=== PATIENT | male | born 1990 | race Two or more races ===

== ENCOUNTER 2018-11-11 14:34 | Emergency (ER) | payer SELFPAY ==
[2018-11-11] MEDS ORDERED: ALBUTEROL SO4 2.5/IPRATROPIUM 0.5 INH SOL 3 ML VIAL.NEB. NEB ONE ×4 (14:55→16:19)
[2018-11-11 14:58] VITALS: BP 98/51; PULSE 64; TEMP 98.5; BMI 24.7
--- NOTE | 2018-11-11 14:58 | PDOC ---
Rapid Medical Evaluation Chief Complaint: Asthma Time Seen by Provider: 11/11/18 14:52 Medical Evaluation: Allergies Allergy/AdvReac Type Severity Reaction Status Date / Time No Known Allergies Allergy Verified 11/10/11 22:21 11/11/18 14:53 27 year old c/o wheezing x 2 days. chest tightness. patient reports that he used his sisters inhaler prior to this evaluation. now feels slightly better. + smoker PE: patient alert ox3 breath sounds clear PMHX: asthma P: chest xray duoneb x 1 patient to the ER for further management of care. 11/11/18 14:58 Discharge Disposition - Diagnosis Asthma Qualifiers: Asthma severity: mild Asthma persistence: intermittent Asthma complication type : unspecified Qualified Code(s): J45.20 - Mild intermittent asthma, uncomplicated - Referrals - Patient Instructions - Post Discharge Activity
[2018-11-11] MEDS ORDERED: DEXAMETHASONE LIQUID 0.5 MG/5 ML PO ONE (15:42)
[2018-11-11] MEDS ORDERED: DEXAMETHASONE SOD PHOSPHATE 10 MG/1 ML VIAL ONE (15:43)
--- NOTE | 2018-11-11 15:47 | PDOC ---
History of Present Illness - General Chief Complaint: Asthma Stated Complaint: ASTHMA Time Seen by Provider: 11/11/18 14:52 History Source: Patient Exam Limitations: No Limitations Past History - Travel Traveled outside of the country in the last 30 days: No Close contact w/someone who was outside of country & ill: No - Past Medical History Allergies/Adverse Reactions: Allergies Allergy/AdvReac Type Severity Reaction Status Date / Time No Known Allergies Allergy Verified 11/11/18 14:55 Home Medications: Ambulatory Orders No Home Medications 0 dose .ROUTE UTDICT 11/10/11 Albuterol Sulfate Inhaler - [Ventolin HFA Inhaler -] 1 - 2 inh PO Q4H #1 inhaler 11/11/18 Asthma: Yes CVA: No COPD: No - Immunization History Immunization Up to Date: Yes - Suicide/Smoking/Psychosocial Hx Smoking Status: Yes Smoking History: Never smoked Number of Cigarettes Smoked Daily: 0 Information on smoking cessation initiated: No Hx Alcohol Use: No Drug/Substance Use Hx: Yes (marijuana) Review of Systems - Review of Systems Able to Perform ROS?: Yes Comments:: 11/11/18 15:47 CONSTITUTIONAL: Absent: fever, chills, diaphoresis, generalized weakness, malaise, loss of appetite HEENT: Absent: rhinorrhea, nasal congestion, throat pain, throat swelling, difficulty swallowing, mouth swelling, ear pain, eye pain, visual Changes CARDIOVASCULAR: Absent: chest pain, loss of consciousness, palpitations, irregular heart rate, peripheral edema RESPIRATORY: Present: cough, chest tightness. Absent: dyspnea with exertion, orthopnea, wheezing, stridor, hemoptysis MUSCULOSKELETAL: Absent: myalgia, arthralgia, joint swelling SKIN: Absent: rash, itching, pallor NEUROLOGIC: Absent: headache, focal weakness or paresthesias, dizziness, unsteady gait, seizure, mental status changes, bladder or bowel incontinence PSYCHIATRIC: Absent: anxiety, depression, suicidal or homicidal ideation, hallucinations. Is the patient limited Burkinan proficient: No *Physical Exam - Vital Signs Last Vital Signs Temp Pulse Resp BP Pulse Ox 98.5 F 64 17 98/51 L 100 11/11/18 14:55 11/11/18 14:55 11/11/18 14:55 11/11/18 14:55 11/11/18 14:55 - Physical Exam Comments: 11/11/18 19:32 GENERAL: Well developed, well nourished. Awake and alert. No acute distress. HEENT: Normocephalic, atraumatic. PERRLA, EOMI. No conjunctival pallor. Sclera are non- icteric. Moist mucous membranes. Oropharynx is clear. NECK: Supple. Full ROM. No JVD. Carotid pulses 2+ and symmetric, without bruits. No thyromegaly. No lymphadenopathy. CARDIOVASCULAR: Regular rate and rhythm. No murmurs, rubs, or gallops. Distal pulses are 2+ and symmetric. PULMONARY: No evidence of respiratory distress. Lungs clear to auscultation bilaterally. No wheezing, rales or rhonchi. ABDOMINAL: Soft. Non-tender. Non-distended. No rebound or guarding. No organomegaly. Normoactive bowel sounds. MUSCULOSKELETAL Normal range of motion at all joints. No bony deformities or tenderness. No CVA tenderness. EXTREMITIES: No cyanosis. No clubbing. No edema. No calf tenderness. SKIN: Warm and dry. Normal capillary refill. No rashes. No jaundice. NEUROLOGICAL: Alert, awake, appropriate. Cranial nerves 2-12 intact. No deficits to light touch and temperature in face, upper extremities and lower extremities. No motor deficits in the in face, upper extremities and lower extremities. Normoreflexic in the upper and lower extremities. Normal speech. Toes are down- going bilaterally. Gait is normal without ataxia. PSYCHIATRIC: Cooperative. Good eye contact. Appropriate mood and affect. ED Treatment Course - Medications Given in the ED: ED Medications Discontinued Medications Generic Name Dose Route Start Last Admin Trade Name Freq PRN Reason Stop Dose Admin Albuterol/Ipratropium 1 amp 11/11/18 14:55 11/11/18 15:13 Duoneb - NEB 11/11/18 14:56 1 amp ONCE ONE Administration Medical Decision Making - Medical Decision Making 11/11/18 19:32 patient is a 27-year-old male with past medical history of asthma as a child, who presents to the ER today for chest tightness and cough for 2 days. He states that he used his sister's inhaler which helped his symptoms. He states he grew out of his asthma in high school. He was never hospitalized or intubated for his asthma in the past. Denies shortness of breath, chest pain, nausea, vomiting and diarrhea. A/P: Asthma exacerbation Exam lung sounds are clear however little tight at the bases. No wheezes rales or rhonchi. Chest x-ray ordered from [facility] is negative for pneumonia. For DuoNeb's and Decadron given with relief of symptoms. Repeat lung sounds are now clear with good aeration to the bases. Discharge home with a rescue inhaler Patient to follow-up with his primary care doctor. I discussed the physical exam findings, ancillary test results and final diagnoses with the patient. I answered all of the patient's questions. The patient was satisfied with the care received and felt comfortable with the discharge plan and treatment plan. The Patient agrees to follow up with the primary care physician/specialist within 24-72 hours. Return precautions were given. *DC/Admit/Observation/Transfer Diagnosis at time of Disposition: Asthma Qualifiers: Asthma severity: mild Asthma persistence: intermittent Asthma complication type : unspecified Qualified Code(s): J45.20 - Mild intermittent asthma, uncomplicated - Discharge Dispostion Disposition: HOME Condition at time of disposition: Stable Decision to Admit order: No - Prescriptions Prescriptions: Albuterol Sulfate Inhaler - [Ventolin HFA Inhaler -] 1 - 2 inh PO Q4H #1 inhaler - Referrals Referrals: Francisco Razo MD [Staff Physician] - - Patient Instructions Printed Discharge Instructions: Asthma -- Adult Additional Instructions: You have an asthma exacerbation Please use the inhaler every 4 hours for the next week to help with your cough. You were given a long acting steroid in the emergency department. Please follow up with your primary care doctor in 1 week if your symptoms are not improving. Return to the emergency department if you have fevers, chills, worsening cough, chest pain, worsening shortness of breath or if you have any changes in your symptoms. - Post Discharge Activity Forms/Work/School Notes: Back to Work
[2018-11-11] MEDS: ALBUTEROL SO4 2.5/IPRATROPIUM 0.5 INH SOL 3 ML VIAL.NEB. NEB SCH ×4 (15:49→16:41)
== END 2018-11-11 17:15 | disposition home or self-care (01) ==
LOC: JERFT 14:34
PROC: 3E0F7GC Introduction of Other Therapeutic Substance into Respiratory Tract, Via Natural or Artificial Opening (ICD-10-PCS; principal; 2018-11-11)
PROC: 3E0F7GC Introduction of Other Therapeutic Substance into Respiratory Tract, Via Natural or Artificial Opening (ICD-10-PCS; 2018-11-11)
DX: J45.21 Mild intermittent asthma with (acute) exacerbation (principal); F17.210 Nicotine dependence, cigarettes, uncomplicated
CPT/HCPCS: 71046-TC-FY; 99281-25

== ENCOUNTER 2018-11-13 12:41 | Emergency (ER) | payer SELFPAY ==
[2018-11-13 12:51] VITALS: BMI 24.3
[2018-11-13] MEDS ORDERED: DEXAMETHASONE LIQUID 0.5 MG/5 ML PO ONE (13:55)
[2018-11-13] MEDS ORDERED: ALBUTEROL SO4 2.5/IPRATROPIUM 0.5 INH SOL 3 ML VIAL.NEB. NEB ONE ×2 (13:55→13:59)
--- NOTE | 2018-11-13 13:57 | PDOC ---
History of Present Illness - General Chief Complaint: Chest Pain Stated Complaint: CHEST PAIN Time Seen by Provider: 11/13/18 12:58 History Source: Patient Exam Limitations: No Limitations Past History - Travel Traveled outside of the country in the last 30 days: No Close contact w/someone who was outside of country & ill: No - Past Medical History Allergies/Adverse Reactions: Allergies Allergy/AdvReac Type Severity Reaction Status Date / Time cat dander Allergy Verified 11/13/18 12:48 Home Medications: Ambulatory Orders No Home Medications 0 dose .ROUTE UTDICT 11/10/11 Prednisone [Deltasone] 40 mg PO DAILY #8 tablet 11/13/18 Asthma: Yes CVA: No COPD: No - Immunization History Immunization Up to Date: Yes - Suicide/Smoking/Psychosocial Hx Smoking Status: Yes Smoking History: Never smoked Number of Cigarettes Smoked Daily: 0 Hx Alcohol Use: No Drug/Substance Use Hx: Yes (marijuana) Review of Systems - Review of Systems Able to Perform ROS?: Yes Comments:: 11/13/18 15:31 CONSTITUTIONAL: Absent: fever, chills, diaphoresis, generalized weakness, malaise, loss of appetite HEENT: Absent: rhinorrhea, nasal congestion, throat pain, throat swelling, difficulty swallowing, mouth swelling, ear pain, eye pain, visual Changes CARDIOVASCULAR: Present: chest pain Absent: loss of consciousness, palpitations, irregular heart rate, peripheral edema RESPIRATORY: Present: chest tightness Absent: cough, shortness of breath, dyspnea with exertion, orthopnea, wheezing, stridor, hemoptysis GASTROINTESTINAL: Absent: abdominal pain, abdominal distension, nausea, vomiting, diarrhea, constipation, melena, hematochezia GENITOURINARY: Absent: dysuria, frequency, urgency, hesitancy, hematuria, flank pain, genital pain MUSCULOSKELETAL: Absent: myalgia, arthralgia, joint swelling SKIN: Absent: rash, itching, pallor HEMATOLOGIC/IMMUNOLOGIC: Absent: easy bleeding, easy bruising, lymphadenopathy, frequent infections ENDOCRINE: Absent: unexplained weight gain, unexplained weight loss, heat intolerance, cold intolerance NEUROLOGIC: Absent: headache, focal weakness or paresthesias, dizziness, unsteady gait, seizure, mental status changes, bladder or bowel incontinence PSYCHIATRIC: Absent: anxiety, depression, suicidal or homicidal ideation, hallucinations. Is the patient limited Malawian proficient: No *Physical Exam - Vital Signs Last Vital Signs Temp Pulse Resp BP Pulse Ox 98 F 58 L 20 92/52 L 99 11/13/18 12:48 11/13/18 12:48 11/13/18 12:48 11/13/18 12:48 11/13/18 12:48 - Physical Exam Comments: 11/13/18 15:33 GENERAL: Well developed, well nourished. Awake and alert. No acute distress. HEENT: Normocephalic, atraumatic. PERRLA, EOMI. No conjunctival pallor. Sclera are non- icteric. Moist mucous membranes. Oropharynx is clear. NECK: Supple. Full ROM. No JVD. Carotid pulses 2+ and symmetric, without bruits. No thyromegaly. No lymphadenopathy. CARDIOVASCULAR: Regular rate and rhythm. No murmurs, rubs, or gallops. Distal pulses are 2+ and symmetric. PULMONARY: No evidence of respiratory distress. Lungs clear to auscultation bilaterally. No wheezing, rales or rhonchi. ABDOMINAL: Soft. Non-tender. Non-distended. No rebound or guarding. No organomegaly. Normoactive bowel sounds. MUSCULOSKELETAL (+) chest wall pain at the R sternal boarder. Normal range of motion at all joints. No bony deformities or tenderness. No CVA tenderness. EXTREMITIES: No cyanosis. No clubbing. No edema. No calf tenderness. SKIN: Warm and dry. Normal capillary refill. No rashes. No jaundice. NEUROLOGICAL: Alert, awake, appropriate. Cranial nerves 2-12 intact. No deficits to light touch and temperature in face, upper extremities and lower extremities. No motor deficits in the in face, upper extremities and lower extremities. Normoreflexic in the upper and lower extremities. Normal speech. Toes are down- going bilaterally. Gait is normal without ataxia. PSYCHIATRIC: Cooperative. Good eye contact. Appropriate mood and affect. ED Treatment Course - LABORATORY CBC & Chemistry Diagram: 11/13/18 15:00 11/13/18 15:00 Medical Decision Making - Medical Decision Making 11/13/18 15:35 The patient is a 27 y/o M with PMH of asthma, presents to the ER for chest tightness and pain since Thursday. He was evaluated by myself on Thursday and he was diagnosed with an asthma exacerbation. Today the patient states he still has the same pain and it hasn't gotten better. He states that on Thursday he did heavy lifting at the gym. States that taking a deep breath makes his pain worse. Denies fevers, chills, palpitations, cough, n/v/d A/P: atypical chest pain. On exam pt with point tenderness to the r sternal boarder CXR from Thursday negative Labs, EKG, Fluids, meds ordered EK BPM sinus bradycardia. Normal intervals and axis. No acute ST-T wave changes Pt pending labs; requesting allergy testing will give referral Sign out given to [facility]. Dispo depending on labs. Anticipate discharge. *DC/Admit/Observation/Transfer Diagnosis at time of Disposition: Chest pressure - Discharge Dispostion Disposition: HOME Condition at time of disposition: Improved - Prescriptions Prescriptions: Prednisone [Deltasone] 40 mg PO DAILY #8 tablet - Referrals - Patient Instructions Additional Instructions: Your labs and EKG were normal here Continue asthma medications at home as needed Please follow up with your PMD - Post Discharge Activity
[2018-11-13] MEDS ORDERED: DEXAMETHASONE SOD PHOSPHATE 10 MG/1 ML VIAL ONE (14:00)
[2018-11-13] MEDS ORDERED: KETOROLAC TROMETHAMINE 60 MG/2 ML VIAL IVPUSH ONE (14:32)
[2018-11-13] MEDS ORDERED: SODIUM CHLORIDE 1,000 ML IV STA (14:32)
[2018-11-13] MEDS ORDERED: KETOROLAC TROMETHAMINE 30 MG/1 ML VIAL ONE (15:08)
[2018-11-13 15:25] LABS: BASO % 0.9 % (0-2.0); EOS % 4.1 % (0-4.5); HEMATOCRIT 41.9 % (35.4-49); HEMOGLOBIN 14.3 GM/dL (11.7-16.9); LYMPH % 35.4 % (8-40); MCH 32.8 pg (25.7-33.7); MCHC 34.2 g/dl (32.0-35.9); MEAN CELL VOLUME 95.9 fl (80-96); MEAN PLT VOLUME 7.6 fl (7.5-11.1); MONO % 10.9 % (3.8-10.2); NEUT % 48.7 % (42.8-82.8); PLATELET COUNT 237 K/MM3 (134-434); RBC 4.37 M/mm3 (4.00-5.60); RDW 12.4 % (11.9-15.9); WHITE BLOOD COUNT 5.5 K/mm3 (4.0-10.0)
[2018-11-13 15:56] LABS: ALBUMIN 4.1 g/dl (3.4-5.0); BILIRUBIN,TOTAL 0.8 mg/dL (0.2-1); BLOOD UREA NITROGEN 15.1 mg/dL (7-18); CALCIUM 9.3 mg/dL (8.5-10.1); CREATININE 1.1 mg/dL (0.55-1.3); POTASSIUM 4.1 mmol/L (3.5-5.1); TOT PROT 7.8 g/dl (6.4-8.2)
--- NOTE | 2018-11-13 16:30 | PDOC ---
*Physical Exam - Vital Signs Last Vital Signs Temp Pulse Resp BP Pulse Ox 98 F 58 L 20 92/52 L 99 11/13/18 12:48 11/13/18 12:48 11/13/18 12:48 11/13/18 12:48 11/13/18 12:48 - Physical Exam General Appearance: Yes: Nourished, Appropriately Dressed. No: Apparent Distress HEENT: positive: Normal Voice Neck: positive: Supple Respiratory/Chest: positive: Lungs Clear, Normal Breath Sounds. negative: Respiratory Distress Cardiovascular: positive: Regular Rate, S1, S2 Integumentary: positive: Dry, Warm Neurologic: positive: Fully Oriented, Alert, Normal Mood/Affect ED Treatment Course - LABORATORY CBC & Chemistry Diagram: 11/13/18 15:00 11/13/18 15:00 - ADDITIONAL ORDERS Additional order review: Laboratory Results 11/13/18 11/13/18 15:00 15:00 Sodium 138 Potassium 4.1 Chloride 107 Carbon Dioxide 27 Anion Gap 4 L BUN 15.1 Creatinine 1.1 Est GFR (CKD-EPI)AfAm 105.32 Est GFR (CKD-EPI)NonAf 90.87 Random Glucose 83 Calcium 9.3 Total Bilirubin 0.8 AST 32 ALT 47 Alkaline Phosphatase 64 Creatine Kinase 409 H Creatine Kinase Index 0.6 CK-MB (CK-2) 2.6 Troponin I < 0.02 Total Protein 7.8 Albumin 4.1 11/13/18 15:00 RBC 4.37 MCV 95.9 MCHC 34.2 RDW 12.4 MPV 7.6 Neutrophils % 48.7 Lymphocytes % 35.4 Monocytes % 10.9 H Eosinophils % 4.1 Basophils % 0.9 - Medications Given in the ED: ED Medications Discontinued Medications Generic Name Dose Route Start Last Admin Trade Name Freq PRN Reason Stop Dose Admin Albuterol/Ipratropium 1 amp 11/13/18 13:55 11/13/18 14:02 Duoneb - NEB 11/13/18 13:56 1 amp ONCE ONE Administration Dexamethasone 10 mg 11/13/18 13:55 11/13/18 14:02 Decadron Liquid - PO 11/13/18 13:56 10 mg ONCE ONE Administration Sodium Chloride 1,000 mls @ 1,000 mls/hr 11/13/18 14:32 11/13/18 15:22 Normal Saline - IV 11/13/18 15:31 1,000 mls/hr ASDIR STA Administration Ketorolac Tromethamine 30 mg 11/13/18 14:32 11/13/18 15:22 Toradol Injection - IVPUSH 11/13/18 14:33 30 mg ONCE ONE Administration Medical Decision Making - Medical Decision Making 11/13/18 16:28 Pt signed out to me at 4pm. 27 yo h/o asthma, here with chest tightness. was seen on an earlier visit and tx for asthma flare, given dose of decadron in ED, here w/ continued pain. Has since been given DuoNeb and Decadron. EKG done and unremarkable labs and reassessment pending 11/13/18 16:58 Lab unremarkable. On reassessment, patient asymptomatic with clear lungs and able to ambulate without shortness of breath. Feels well enough to go home. Prescription for pred taper sent. To follow-up with PMD *DC/Admit/Observation/Transfer Diagnosis at time of Disposition: Chest pressure - Discharge Dispostion Disposition: HOME Condition at time of disposition: Improved - Prescriptions Prescriptions: Prednisone [Deltasone] 40 mg PO DAILY #8 tablet - Referrals - Patient Instructions Additional Instructions: Your labs and EKG were normal here Continue asthma medications at home as needed Please follow up with your PMD - Post Discharge Activity
[2018-11-13 16:57] VITALS: BP 111/71; PULSE 60; TEMP 98.3
--- NOTE | 2018-11-14 09:38 | EKG ---
Test Reason : Blood Pressure : / mmHG Vent. Rate : 059 BPM Atrial Rate : 059 BPM P-R Int : 168 ms QRS Dur : 088 ms QT Int : 398 ms P-R-T Axes : 058 074 046 degrees QTc Int : 394 ms SINUS BRADYCARDIA OTHERWISE NORMAL ECG NO PREVIOUS ECGS AVAILABLE Confirmed by SAMI GUZMAN, MELIDA ([id number]) on 11/14/2018 9:38:18 AM Referred By: Confirmed By:MELIDA GALLARDO MD
== END 2018-11-13 17:00 | disposition home or self-care (01) ==
LOC: JER 12:41
PROC: 3E0333Z Introduction of Anti-inflammatory into Peripheral Vein, Percutaneous Approach (ICD-10-PCS; principal; 2018-11-13)
PROC: 3E0F7GC Introduction of Other Therapeutic Substance into Respiratory Tract, Via Natural or Artificial Opening (ICD-10-PCS; 2018-11-13)
DX: R07.89 Other chest pain (principal); J45.909 Unspecified asthma, uncomplicated
CPT/HCPCS: 36415; 80053; 82550; 82553; 84484; 85025; 93005; 93010; 99284-25; J7030